=== PATIENT | male | born 1990 | race Caucasian/White ===

== ENCOUNTER 2021-05-22 10:39 | Emergency (ER) | payer OTHER ==
[~2021-05-22] VITALS: Ht 175.3 cm; Wt 108.9 kg
[2021-05-22] MEDS ORDERED: PEPCID AC10 MG (10:46)
[2021-05-22] MEDS ORDERED: OMEPRAZOLE40 MG PO (16:23)
[2021-05-22] MEDS ORDERED: CARAFATE1 GM PO (16:23)
[2021-05-22] MEDS ORDERED: CHLORDIAZEPOXI1 EACH PO (16:23)
[2021-05-22] MEDS ORDERED: PEPCID AC20 MG PO (16:23)
== END 2021-05-22 17:39 | disposition home or self-care (01) ==
LOC: ER 10:39
DX: K29.70 Gastritis, unspecified, without bleeding (principal); E86.0 Dehydration; R10.13 Epigastric pain; Z11.52 Encounter for screening for COVID-19